=== PATIENT | female | born 1990 | race Caucasian/White ===

== ENCOUNTER 2017-03-11 17:11 | Emergency (ER) | payer MEDICAID, OTHER ==
[~2017-03-11] VITALS: Ht 162.6 cm; Wt 127.9 kg
[2017-03-11 17:43] VITALS: BP 132/81
== END 2017-03-11 17:58 | disposition home or self-care (01) ==
LOC: ER 17:23
DX: L30.8 Other specified dermatitis (principal)

== ENCOUNTER 2017-07-10 07:19 | Emergency (ER) | payer MEDICAID ==
[~2017-07-10] VITALS: Ht 162.6 cm; Wt 123.8 kg
[2017-07-10 07:42] VITALS: BP 168/66
[2017-07-10] MEDS ORDERED: KETOROLAC TROMETH 60MG/2ML VIAL IM ONE (08:30)
== END 2017-07-10 08:53 | disposition home or self-care (01) ==
LOC: ER 07:19
DX: K08.89 Other specified disorders of teeth and supporting structures (principal)
CPT/HCPCS: 96372; 99283; J1885

== ENCOUNTER 2018-07-05 12:07 | Emergency (ER) | payer MEDICAID ==
[~2018-07-05] VITALS: Ht 162.6 cm; Wt 127.0 kg
[2018-07-05 12:20] VITALS: BP 120/75
== END 2018-07-05 14:59 | disposition home or self-care (01) ==
LOC: ER 12:07
DX: J03.90 Acute tonsillitis, unspecified (principal)